=== PATIENT | male | born 1980 | race Caucasian/White ===

== ENCOUNTER 2020-03-10 10:13 | Emergency (ER) | payer OTHER ==
[~2020-03-10] VITALS: Ht 170.2 cm; Wt 88.6 kg
[2020-03-10] MEDS ORDERED: ACETAMINOPHEN 500 MG TABLET PO ONE (11:30)
[2020-03-10 11:32] LABS: COVID AG,FIA SOURCE NASOPHARYNGEAL
[2020-03-10 12:36] LABS: INFLUENZA TYPE A NEGATIVE FOR TYPE A (NEGATIVE); INFLUENZA TYPE B NEGATIVE FOR TYPE B (NEGATIVE)
[2020-03-10] MEDS ORDERED: IBUPROFEN 600 MG TABLET PO ONE (13:00)
[2020-03-10 13:16] VITALS: BP 130/86
== END 2020-03-10 14:02 | disposition home or self-care (01) ==
LOC: EMS 10:17
DX: B34.9 Viral infection, unspecified (principal); R51.9 Headache, unspecified; M79.10 Myalgia, unspecified site; F12.90 Cannabis use, unspecified, uncomplicated; Z20.828 Contact with and (suspected) exposure to other viral communicable diseases
CPT/HCPCS: 87426; 87804; 99283; U0003

== ENCOUNTER 2023-04-06 15:46 | Emergency (ER) | payer OTHER ==
[~2023-04-06] VITALS: Ht 177.8 cm; Wt 81.8 kg
[2023-04-06 16:59] LABS: COVID AG,FIA SOURCE NASAL SWAB
[2023-04-06 17:13] LABS: INFLUENZA TYPE A NEGATIVE FOR TYPE A (NEGATIVE); INFLUENZA TYPE B NEGATIVE FOR TYPE B (NEGATIVE)
[2023-04-06 17:18] LABS: RAPID GROUP A STREP NEGATIVE (NEGATIVE)
[2023-04-06 17:21] LABS: SARS-COV2 (COVID) ANTIGEN,FIA Negative (Negative)
[2023-04-06] MEDS ORDERED: KETOROLAC TROMETHAMINE 60 MG/2 ML VIAL IM ONE (17:45)
[2023-04-06] MEDS ORDERED: AMOXICILLIN TRIHYDRATE 250 MG CAPSULE PO ONE (17:45)
[2023-04-06] MEDS ORDERED: AMOX1TAB16 PO (18:54)
[2023-04-06 19:14] VITALS: BP 145/78; PULSE 92; RESP 18
== END 2023-04-06 19:18 | disposition home or self-care (01) ==
LOC: EMS 15:47
DX: H66.90 Otitis media, unspecified, unspecified ear (principal); J02.9 Acute pharyngitis, unspecified; Z20.822 Contact with and (suspected) exposure to COVID-19
CPT/HCPCS: 99283; 87426; 87430; 87804; 96372; J1885